=== PATIENT | female | born 1980 | race Caucasian/White ===

== ENCOUNTER 2025-04-30 12:48 | Day surgery (SDC) | payer BC, SELFPAY ==
[2025-04-28 14:07] VITALS: BMI 27.1
--- NOTE | 2025-04-28 17:54 | EXP.HP ---
History of Present Illness *Admission Date: 04/30/25 *History of present illness: Ms. Cullen is a 45-year-old female who is here for diagnostic upper endoscopy. She has had longstanding digestive difficulties and has last seen me in December 2024. She was having a lot of bloating, gassiness, belching, nausea, early satiety and abdominal pain. She has had multiple studies in the past including endoscopy, colonoscopy, CAT scans, imaging. She had been following with [facility] gastroenterology. At the time of her reestablishment in June, I had recommended low FODMAP diet with an experienced dietitian (Claudia Ely) and she has done just that and has had marked improvement. She has initiated neuromodulation (amitriptyline) and diaphragmatic breathing. She did have marked improvement after stopping vitamin D. She is much better after this but still gets bloating. She also reports globus sensation. She still gets some intermittent functional abdominal pain in the lower abdomen. She does have a history of endometriosis. She had prior pelvic floor physical therapy for nearly 18 to 24 months but has not reestablished with them. She did have acupuncture and electrical stimulation. The patient now reports some dysphagia with the globus sensation. She is going to have enzyme breath testing with Claudia Ely. [facility] Disclaimer: The information contained in this section may have been updated after the patient was seen, as this information can be updated by other users. Medical History (Updated 04/28/25 @ 14:05 by Melony Hernandez RN) Fibromyalgia Migraines SVT (supraventricular tachycardia) IBS (irritable bowel syndrome) ADHD Complex posttraumatic stress disorder Adenomyosis Cervical endometriosis Surgical History (Updated 04/28/25 @ 14:05 by Melony Hernandez RN) History of hip surgery History of cholecystectomy H/O: hysterectomy History of appendectomy Family History Other Bleeding disorder Cancer Coronary artery disease Diabetes Hyperlipidemia Hypertension Social History (Updated 04/28/25 @ 14:06 by Melony Hernandez RN) Smoking Status: Never smoker alcohol intake: current substance use type: marijuana current occupational status: employed Travel in the last 8 weeks?: None Have you lived/traveled outside [place] in past 30 days?: No Contact w/someone who lives/traveled outside US past 30 days?: No Exposure to someone with infectious disease in past 14 days?: No Do you have a fever (greater than 100.4 F or 38 C)?: No Have you tested positive for COVID-19?: No Exposed to someone with COVID-19 in past 14 days?: No Do you have a sore throat?: No Do you have a cough?: No Do you have any weakness?: No Are you experiencing any nausea/vomitting?: No Do you have any diarrhea?: No Are you experiencing any unusual bleeding?: No Do you have any muscle aches/pain?: No Do you have any abdominal pain?: No Are you experiencing loss of taste or smell?: No Review of Systems Review of Systems Review of systems (narrative): Negative *Cardiovascular Comments: Negative *Gastrointestinal Comments: Negative *Genitourinary Comments: Negative *Musculoskeletal Comments: Negative *Neurologic Comments: Negative Meds Home Medications and Allergies Home Medications ?Medication ?Instructions ?Recorded ?Confirmed ?Type alprazolam 0.5 mg tablet 0.5 mg PO DAILY . 07/02/24 04/28/25 History amitriptyline 50 mg tablet 50 mg PO HS 07/02/24 04/28/25 History estradiol 0.0375 mg/24 hr 1 patch transdermal ONCE 07/02/24 04/28/25 History semiweekly transdermal patch ondansetron 4 mg disintegrating 4 mg PO DAILY 07/02/24 04/28/25 History tablet promethazine 25 mg rectal 25 mg SD DAILY 07/02/24 04/28/25 History suppository (Promethegan) temazepam 30 mg capsule 30 mg PO HS PRN . 07/02/24 04/28/25 History estradiol 0.01% (0.1 mg/gram) 1 appful vaginal WEEKLY 01/06/25 04/28/25 History vaginal cream propranolol 80 mg capsule,24 80 mg PO ONCE 01/06/25 04/28/25 History hr,extended release New Prescriptions to Start Prescriptions: Allergies Allergy/AdvReac Type Severity Reaction Status Date / Time No Known Allergies Allergy Verified 04/28/25 14:01 Exam Data for Last 24 hours I & O for Last 24 hours: Intake & Output 04/25/25 04/26/25 04/27/25 04/28/25 23:59 23:59 23:59 23:59 Weight 163 lb *Routine HEENT Exam Head: Present normocephalic Eye: Present EOMI and PERRL ENT: Present mucous membranes moist *Routine Neck Exam Neck: Present supple *Routine Respiratory Exam Respiratory: Present CTA bilaterally *Routine Cardiovascular Exam Cardiovascular: Present RRR *Routine Abdominal Exam Abdominal: Present soft and normoactive bowel sounds; Absent tenderness *Routine Rectal Exam Rectal:: deferred *Routine Genitalia Exam Genitalia:: deferred *Routine Extremities Exam Extremities: Absent cyanosis, clubbing or edema *Routine Skin Exam Skin: Present warm; Absent rash *Routine Neurological Exam Neurological: Present alert and oriented X3 Assessment and Plan *Assessment and plan (1) Nausea and vomiting: Status: Acute Category: Medical Code(s): R11.2 - Nausea with vomiting, unspecified (2) Globus sensation: Status: Acute Category: Medical Code(s): R09.A2 - Foreign body sensation, throat (3) Bloating: Status: Acute Category: Medical Code(s): R14.0 - Abdominal distension (gaseous) Plan A/P: 1. Nausea/vomiting, bloating and globus sensation is the preprocedural diagnosis. The patient will be anesthetized/sedated using MAC sedation. The patient has been seen and examined. Cardiac and lung assessment prior to the examination is stable. Proceed with planned diagnostic EGD.
[2025-04-30 13:04] VITALS: BP 158/102; PULSE 94; RESP 18; TEMP 36.6; O2SAT 96
[2025-04-30] MEDS: LACTATED RINGERS 1000ML 1,000 ML 50 ML IV (13:10)
--- NOTE | 2025-04-30 13:54 | HMH.PROCNOTE ---
[facility] Procedure Note Date: 04/30/25 Time: 14:01 Procedure Note:: Upper Endoscopy Procedure Report: Esophagogastroduodenoscopy with cold biopsies and TTS balloon dilation Endoscopost: Sandor Vallejo II, MD Referring Physician: Ny Roberts MD, [id number], [place] [address] Date of Procedure: April 30, 2025 Equipment: Olympus GIF-1100 standard upper endoscope Sedation: MAC sedation Indications: Ms. Cullen is a 45-year-old female who is here for diagnostic upper endoscopy. She has had longstanding digestive difficulties and has last seen me in December 2024. She was having a lot of bloating, gassiness, belching, nausea, early satiety and abdominal pain. She has had multiple studies in the past including endoscopy, colonoscopy, CAT scans, imaging. She had been following with [facility] gastroenterology. At the time of her reestablishment in June, I had recommended low FODMAP diet with an experienced dietitian (Claudia Ely) and she has done just that and has had marked improvement. She has initiated neuromodulation (amitriptyline) and diaphragmatic breathing. She did have marked improvement after stopping vitamin D. She is much better after this but still gets bloating. She also reports globus sensation. She still gets some intermittent functional abdominal pain in the lower abdomen. She does have a history of endometriosis. She had prior pelvic floor physical therapy for nearly 18 to 24 months but has not reestablished with them. She did have acupuncture and electrical stimulation. The patient now reports some dysphagia with the globus sensation. She is going to have enzyme breath testing with Claudia Ely. Procedure: Prior to the procedure, a history and physical exam was performed, and patient's medications and allergies were reviewed. The risks, benefits and alternatives of the sedation and procedure were discussed with the patient. All questions were answered and informed consent was obtained. The patient was brought to the procedure room. Patient identification and proposed procedure were verified by the physician and the nurse. The patient was placed in a left lateral decubitus position and the scope was passed under direct vision. Throughout the procedure, the patient's blood pressure, pulse, and oxygen saturations were monitored continuously. The upper GI endoscopy was accomplished without difficulty. The patient tolerated the procedure well. Findings: The scope was passed directly into the upper esophagus and advanced to the third portion of the duodenum. The post bulbar duodenum and duodenal bulb were normal with normal mucosa and conniventes. Cold biopsies were taken from the second portion of the duodenum for the disaccharidase assay. The scope was withdrawn through a normal duodenal bulb and pylorus into the stomach. There was moderate to marked bile reflux with moderate linear reactive gastropathy of the antrum and body of the stomach. The fundus of the stomach was normal. Upon retroflexion there was a very small sliding 1 to 2 cm hiatal hernia. The scope was then withdrawn into the esophagus. There was no evidence of reflux esophagitis or Rock's but there was some bile reflux within the esophagus. There were tertiary contractions and evidence of moderate esophageal dysmotility. There were no rings, webs, strictures, corrugation, furrowing or inlet patch. The entire esophagus was dilated to 60 Jamaican/20 mm. There was resistance at the cricopharyngeus/cricopharyngeal spasm. The remainder of the esophageal mucosa was normal. Impression: 1. Cricopharyngeal spasm status post dilation to 20 mm 2. Nonerosive GERD with moderate esophageal dysmotility and very small sliding 1 to 2 cm hiatal hernia 3. Bile reflux with moderate linear reactive gastropathy Plan: I will follow-up the biopsies and disaccharidase assay. Most of your symptoms of bloating, dyspepsia and reflux are related to and driven by lower intestinal gas pressure gradients/high gas pressure buildup resulting in backflow of bile and peptic fluid from the duodenum into the stomach (duodenal reflux). This gas production (carbon dioxide, hydrogen, methane, etc.) from the lower intestinal tract is the byproduct of colonic bacterial fermentation. This colonic fermentation occurs when there is more carbohydrate (dietary starches, sugars and high residue plant fiber) substrate that does not get digested (in the middle or small intestine) or occurs when there is colonic fecal buildup and colonic bacterial overgrowth. This indeed leads to bloating and the gas pressure buildup with gas pressure gradients that do drive backflow and dyspepsia. I would continue low FODMAP diet, pelvic floor physical therapy, neuromodulation (amitriptyline) and diaphragmatic breathing. Bloating as a symptom in clinical GI practice is 1 of the most common reasons for patient visits. The guidelines are to determine whether there are underlying factors (i.e. enzyme deficiencies), incomplete colonic emptying, stress, dietary factors (carbohydrates/FODMAP's). We certainly have moved in this direction. Probiotic should not be used as a treatment for bloating and distention. Best practices include diaphragmatic breathing and central neuromodulators and low FODMAP diet. Certainly pelvic floor training can help.
[2025-04-30 14:07] VITALS: BP 128/70; PULSE 99; RESP 16; TEMP 36.2; O2SAT 98
[2025-04-30 14:17] VITALS: BP 134/69; PULSE 85; RESP 18; TEMP 36.2; O2SAT 99
[2025-04-30 14:27] VITALS: BP 126/72; PULSE 80; RESP 18; TEMP 36.2; O2SAT 99
[2025-04-30 14:37] VITALS: BP 126/72; PULSE 76; RESP 18; TEMP 36.2; O2SAT 99
[2025-05-04 15:02] LABS: Interpretation Notes (.); Lactase 28.79 (>/= 14.0); Maltase 281.61 (>/= 110.0); Palatinase 21.13 (>/= 8.5); Reference Notes (.); Sucrase 78.71 (>/= 25.0)
== END 2025-04-30 14:37 | disposition home or self-care (01) ==
PROVIDERS: Visit Provider Internal Medicine Gastroenterology
PROC: 0DJ08ZZ Inspection of Upper Intestinal Tract, Via Natural or Artificial Opening Endoscopic (ICD-10-PCS; CPT 43239; principal; 2025-03-12 12:00)
DX: K22.4 Dyskinesia of esophagus (principal); K21.00 Gastro-esophageal reflux disease with esophagitis, without bleeding; K44.9 Diaphragmatic hernia without obstruction or gangrene; K31.89 Other diseases of stomach and duodenum; R14.0 Abdominal distension (gaseous); R68.81 Early satiety; M79.7 Fibromyalgia; G43.909 Migraine, unspecified, not intractable, without status migrainosus; K58.9 Irritable bowel syndrome, unspecified; R09.A2 Foreign body sensation, throat; F90.9 Attention-deficit hyperactivity disorder, unspecified type; F43.10 Post-traumatic stress disorder, unspecified; I47.10 Supraventricular tachycardia, unspecified; Z90.49 Acquired absence of other specified parts of digestive tract; Z90.710 Acquired absence of both cervix and uterus; Z79.899 Other long term (current) drug therapy; Z79.890 Hormone replacement therapy
CPT/HCPCS: 43239; 43249; 82657; C1726; J2003; J2704; J7120